=== PATIENT | female | born 1985 | race Asian ===

== ENCOUNTER → 2017-08-11 | Outpatient (CLI) | payer BC | LOC: M RAD 14:02 | DX: E28.2 Polycystic ovarian syndrome (principal) | CPT/HCPCS: 76856 ==

== ENCOUNTER → 2017-08-19 | Outpatient (CLI) | payer BC ==
[2017-08-19 18:16] LABS: PROLACTIN 13.2 NG/ML
[2017-08-19 18:16] LABS: PROGESTERONE 0.3 NG/ML
[2017-08-19 18:47] LABS: FREE T4 1.11 NG/DL (0.76-1.46)
[2017-08-24 10:10] LABS: 17 HYDROXY PROGESTERONE 72 ng/dL (.); DEHYDROEPIANDROSTERONE SULFATE 252.3 ug/dL (84.8-378.0); TESTOSTERONE FREE (DIRECT) 2.6 pg/mL (0.0-4.2)
== END ==
LOC: M SMT 15:56
DX: E28.2 Polycystic ovarian syndrome (principal)
CPT/HCPCS: 84146

== ENCOUNTER → 2017-11-09 | Outpatient (CLI) | payer BC ==
[2017-11-09 14:15] LABS: PROGESTERONE 0.4 NG/ML
== END ==
LOC: M SMT 07:58
DX: N92.6 Irregular menstruation, unspecified (principal); E28.2 Polycystic ovarian syndrome
CPT/HCPCS: 84144

== ENCOUNTER → 2017-12-16 | Outpatient (CLI) | payer BC ==
[2017-12-16 14:13] LABS: PROGESTERONE 0.5 NG/ML
== END ==
LOC: M SMT 08:04
DX: E28.2 Polycystic ovarian syndrome (principal)
CPT/HCPCS: 84144

== ENCOUNTER → 2018-01-22 | Outpatient (CLI) | payer BC ==
[2018-01-22 18:13] LABS: PROGESTERONE 12.45 NG/ML
== END ==
LOC: M SMT 12:58
DX: E28.2 Polycystic ovarian syndrome (principal)
CPT/HCPCS: 84144

== ENCOUNTER → 2018-02-03 | Outpatient (CLI) | payer BC ==
--- NOTE | 2018-02-03 12:20 | REP ---
Clinical: pelvic and perineal pain. Technique: Transabdominal pelvic ultrasound followed by transvaginal examination for better evaluation of the endometrium and adnexa with color Doppler evaluation of the ovaries. Findings: Bladder is unremarkable and measures 6.3 x 5.6 x 3.6 cm . Normal retroverted uterus measures 7.4 x 4.2 x 5.7 cm. The endometrial complex measures 5 mm thickness. No discrete significant uterine or endometrial abnormalities are appreciated. Few small benign appearing endometrial cysts measure up to 3 mm. Bilateral ovaries are normal in appearance and vascularity without evidence for torsion. Right ovary measures 3.5 x 1.8 x 1.8 cm ; R I = 0.67. Left ovary measures 2.5 x 2.7 x 1.5 cm ; R I = 0.60 . No pelvic fluid or adnexal mass lesion . Impression: 1. essentially normal pelvic ultrasound Electronically Signed by Remington Foster MD 02/03/2018 12:11 P
== END ==
LOC: M RAD 10:41
PROVIDERS: ATTEND Obstetrics & Gynecology
DX: N85.8 Other specified noninflammatory disorders of uterus (principal); R10.2 Pelvic and perineal pain

== ENCOUNTER → 2018-02-24 | Outpatient (CLI) | payer BC | LOC: M SMT 08:10 | PROVIDERS: ATTEND Obstetrics & Gynecology | DX: E28.2 Polycystic ovarian syndrome (principal) ==

== ENCOUNTER → 2018-04-19 | Outpatient (CLI) | payer BC | LOC: M SMT 08:07 | PROVIDERS: ATTEND Obstetrics & Gynecology | DX: E28.2 Polycystic ovarian syndrome (principal) ==

== ENCOUNTER → 2018-05-26 | Outpatient (REF) | payer BC ==
[2018-05-26 11:22] LABS: LUTEINIZING HORMONE 7.2 mIU/mL; PROLACTIN 17.4 NG/ML
== END ==
LOC: M LABSMT 10:19
PROVIDERS: ATTEND Obstetrics & Gynecology
DX: N92.6 Irregular menstruation, unspecified (principal)

== ENCOUNTER → 2018-06-14 | Outpatient (CLI) | payer BC | LOC: M SMT 08:03 | PROVIDERS: ATTEND Obstetrics & Gynecology | DX: N92.6 Irregular menstruation, unspecified (principal) ==

== ENCOUNTER 2018-07-14 07:50 | Emergency (ER) | payer BC ==
[~2018-07-14] VITALS: Ht 162.6 cm; Wt 60.7 kg
[2018-07-14] MEDS ORDERED: LETR2.5T2 PO (08:12)
[2018-07-14] MEDS ORDERED: MEDR10TA PO (08:12)
--- NOTE | 2018-07-14 09:13 | REP ---
CT Head without contrast HISTORY: Diplopia COMPARISON: None There is no intraparenchymal hemorrhage, acute infarct, mass or midline shift. The ventricular system is normal in appearance. There is no extra cerebral collection. There is no fracture. The visualized sinuses are clear. IMPRESSION: There is no intracranial lesion. Electronically Signed by Elvin Duong MD 07/14/2018 09:05 A
[2018-07-14] MEDS ORDERED: MECLIZINE 25 MG TABLET PO ONE (10:45)
[2018-07-14 11:40] LABS: BASO % 0.6 % (0.0-1.0); EOS # 0.1 10^3/uL (0.0-0.50); EOS % 1.7 % (0.0-3.0); HEMATOCRIT 35.8 % (36.0-47.0); LYMPH % 56.5 % (24.0-44.0); MEAN CORPUSCULAR HEMOGLOBIN 31.1 pg (27.0-33.0); MEAN CORPUSCULAR HGB CONC 33.5 g/dl (32.0-36.5); MEAN CORPUSCULAR VOLUME 92.7 fl (80.0-96.0); MONO # 0.4 10^3/uL (0.0-0.8); MONO % 10.7 % (0.0-5.0); NEUTROPHILS # 1.1 10^3/uL (1.8-7.7); NEUTROPHILS % 30.5 % (36.0-66.0); PLATELET COUNT, AUTOMATED 265 10^3/uL (150-450); RED BLOOD COUNT 3.86 10^6/uL (4.00-5.40); WHITE BLOOD COUNT 3.5 10^3/uL (4.0-10.0)
[2018-07-14 12:03] LABS: ALBUMIN 3.6 GM/DL (3.2-5.2); ALT/SGPT 23 U/L (12-78); BILIRUBIN,TOTAL 0.5 MG/DL (0.2-1.0); BLOOD UREA NITROGEN 11 MG/DL (7-18); CALCIUM LEVEL 8.6 MG/DL (8.5-10.1); CARBON DIOXIDE LEVEL 26 MEQ/L (21-32); CHLORIDE LEVEL 109 MEQ/L (98-107); CREATININE FOR GFR 0.73 MG/DL (0.55-1.30); GLOMERULAR FILTRATION RATE > 60.0 (>60); GLUCOSE, FASTING 112 MG/DL (70-100); POTASSIUM SERUM 4.3 MEQ/L (3.5-5.1); SODIUM LEVEL 141 MEQ/L (136-145); TOTAL PROTEIN 7.5 GM/DL (6.4-8.2)
--- NOTE | 2018-07-14 17:01 | REP ---
MR Brain without contrast HISTORY: Diplopia COMPARISON : CT 07/14/2018 A single punctate focus of increased signal intensity on T2-weighted images is present in the subcortical white matter of the left frontal lobe. There is no intraparenchymal hemorrhage, infarct, mass or midline shift. The ventricular system is normal in appearance. There is no extra cerebral collection. The sinuses are clear. IMPRESSION: There is a single punctate focus of increased signal intensity in the subcortical white matter of the left frontal lobe. This is a nonspecific finding. Electronically Signed by Elvin Duong MD 07/14/2018 11:08 A
--- NOTE | 2018-07-14 17:02 | REP ---
MRA Brain without contrast History: Diplopia 3-D [id number] MR angiography was performed at the level of the hop[place] of [place]. There is no aneurysm, arteriovenous malformation or atherosclerotic lesion. Major intracranial vessels are patent. The left vertebral artery is dominant. Impression: Normal MRA brain. Electronically Signed by Elvin Duong MD 07/14/2018 11:04 A
[2018-07-14 17:27] VITALS: BP 126/78
== END 2018-07-14 17:28 | disposition home or self-care (01) ==
LOC: M ED 07:50
DX: H53.2 Diplopia (principal)

== ENCOUNTER → 2018-08-11 | Outpatient (CLI) | payer BC ==
[~2018-08-11] MED LIST: LETR2.5T2 PO; MEDR10TA PO
[2018-08-11 10:38] LABS: THYROID STIMULATING HORMONE 3.59 uIU/ML (0.358-3.740)
[2018-08-11 11:18] LABS: PROGESTERONE 25.01 NG/ML
[2018-08-11 11:20] LABS: ESTRADIOL 33.3 PG/ML
== END ==
LOC: M SMT 07:53
PROVIDERS: ATTEND Obstetrics & Gynecology Reproductive Endocrinology
DX: E28.9 Ovarian dysfunction, unspecified (principal)

== ENCOUNTER → 2018-08-18 | Outpatient (CLI) | payer BC ==
[2018-08-18 10:12] LABS: HCG, SERUM QUANTITATIVE < 1.0 MIU/ML
[2018-08-18 10:20] LABS: PROGESTERONE 31.85 NG/ML
== END ==
LOC: M SMT 07:58
PROVIDERS: ATTEND Obstetrics & Gynecology Reproductive Endocrinology
DX: E28.9 Ovarian dysfunction, unspecified (principal)

== ENCOUNTER → 2018-09-10 | Outpatient (CLI) | payer BC ==
[2018-09-10 10:42] LABS: ESTRADIOL 108.9 PG/ML; PROGESTERONE 15.47 NG/ML; THYROID STIMULATING HORMONE 0.898 uIU/ML (0.358-3.740)
== END ==
LOC: M SMT 08:43
PROVIDERS: ATTEND Obstetrics & Gynecology Reproductive Endocrinology
DX: E28.9 Ovarian dysfunction, unspecified (principal)

== ENCOUNTER → 2018-09-17 | Outpatient (CLI) | payer BC ==
[2018-09-17 09:56] LABS: HCG, SERUM QUANTITATIVE < 1.0 MIU/ML
[2018-09-17 10:05] LABS: PROGESTERONE 15.59 NG/ML
== END ==
LOC: M SMT 08:22
PROVIDERS: ATTEND Obstetrics & Gynecology Reproductive Endocrinology
DX: E28.9 Ovarian dysfunction, unspecified (principal)

== ENCOUNTER → 2018-10-12 | Outpatient (CLI) | payer BC ==
[2018-10-12 11:13] LABS: THYROID STIMULATING HORMONE 0.631 uIU/ML (0.358-3.740)
[2018-10-12 11:15] LABS: ESTRADIOL 138.1 PG/ML; PROGESTERONE 40.52 NG/ML
== END ==
LOC: M SMT 08:29
PROVIDERS: ATTEND Obstetrics & Gynecology Reproductive Endocrinology
DX: E28.9 Ovarian dysfunction, unspecified (principal)

== ENCOUNTER → 2018-10-19 | Outpatient (CLI) | payer BC ==
[2018-10-19 11:41] LABS: PROGESTERONE 54.38 NG/ML
== END ==
LOC: M SMT 07:56
PROVIDERS: ATTEND Obstetrics & Gynecology Reproductive Endocrinology
DX: Z32.00 Encounter for pregnancy test, result unknown (principal)

== ENCOUNTER → 2018-10-21 | Outpatient (CLI) | payer BC ==
[2018-10-21 10:29] LABS: THYROID STIMULATING HORMONE 1.83 uIU/ML (0.358-3.740)
[2018-10-21 10:36] LABS: ESTRADIOL 330.7 PG/ML
[2018-10-21 11:03] LABS: PROGESTERONE 55.81 NG/ML
== END ==
LOC: M SMT 08:45
PROVIDERS: ATTEND Obstetrics & Gynecology Reproductive Endocrinology
DX: Z32.01 Encounter for pregnancy test, result positive (principal)

== ENCOUNTER → 2019-01-17 | Outpatient (CLI) | payer BC ==
[2019-01-17 18:23] LABS: BASO % 0.2 % (0.0-1.0); EOS # 0.1 10^3/uL (0.0-0.5); EOS % 0.7 % (0.0-3.0); HEMATOCRIT 29.9 % (36.0-47.0); HEMOGLOBIN 10.3 g/dl (12.0-15.5); LYMPH # 1.9 10^3/uL (1.5-5.0); LYMPH % 22.2 % (24.0-44.0); MEAN CORPUSCULAR HEMOGLOBIN 31.8 pg (27.0-33.0); MEAN CORPUSCULAR HGB CONC 34.4 g/dl (32.0-36.5); MEAN CORPUSCULAR VOLUME 92.3 fl (80.0-96.0); MONO # 0.6 10^3/uL (0.0-0.8); MONO % 6.5 % (0.0-5.0); NEUTROPHILS # 5.9 10^3/uL (1.5-8.5); NEUTROPHILS % 70.2 % (36.0-66.0); PLATELET COUNT, AUTOMATED 275 10^3/uL (150-450); RED BLOOD COUNT 3.24 10^6/uL (4.00-5.40); WHITE BLOOD COUNT 8.4 10^3/uL (4.0-10.0)
[2019-01-17 19:30] LABS: CHLAMYDIA DNA AMPLIFICATION NEGATIVE (NEGATIVE); GC DNA AMPLIFICATION NEGATIVE (NEGATIVE)
[2019-01-19 11:07] LABS: HIV 1&2 SCREEN CENTAUR NEGATIVE (NEGATIVE); RUBELLA IgG QUALITATIVE IMMUNE (IMMUNE)
[2019-01-19 13:55] LABS: HEPATITIS C VIRUS ABY INDEX 0.1 INDEX (<0.8)
== END ==
LOC: M PLALAB 12:19
PROVIDERS: ATTEND Obstetrics & Gynecology
DX: Z34.92 Encounter for supervision of normal pregnancy, unspecified, second trimester (principal); Z3A.00 Weeks of gestation of pregnancy not specified

== ENCOUNTER → 2019-01-17 | Outpatient (REF) | payer BC | LOC: M PLALAB 12:07 | PROVIDERS: ATTEND Obstetrics & Gynecology | DX: Z53.9 Procedure and treatment not carried out, unspecified reason (principal) ==

== ENCOUNTER → 2019-02-07 | Outpatient (CLI) | payer BC ==
--- NOTE | 2019-02-07 14:41 | REP ---
Clinical: Anatomical evaluation. Comparison: None . Findings: Examination demonstrates a single live intrauterine in cephalic presentation. motion is identified by technologist. Placenta is noted anterior and grade zero without evidence for placenta previa or abruption. Amniotic fluid volume is normal. Cervix measures 4.5 cm in length and appears closed. No evidence for nuchal cord. Gestational age by LMP 19 weeks 6 days with KENDRA 06/28/2019 . Gestational age by current measurements 19 weeks 6 days with KENDRA 06/28/2019 . FHR equals 136 beats per minute. BPD 4.5 cm 19 weeks 4 days HC 16.8 cm 19 weeks 3 days AC 14.1 cm 19 weeks 3 days FL 3.2 cm 20 weeks 0 days HL 3.1 cm 20 weeks 2 days HC/AC ratio 1.19 Estimated weight 306 grams ( 39th percentile). Anatomical assessment demonstrates normal structures including cranium, choroid plexus, cavum, cerebellum/posterior fossa, facial features, lungs, four-chamber heart/ventricular outflow tracts, diaphragm, stomach, cord insertion/three-vessel cord, kidneys/bladder, spine, and extremities. Incidental echogenic focus within the left cardiac ventricle likely prominent chordae tendineae. Impression: 1. Single live intrauterine in cephalic presentation demonstrating appropriate interval growth. 2. Anatomical assessment is essentially complete and normal as described above. Electronically Signed by Remington Foster MD 02/07/2019 12:49 P
== END ==
LOC: M RAD 11:52
PROVIDERS: ATTEND Obstetrics & Gynecology
DX: Z34.92 Encounter for supervision of normal pregnancy, unspecified, second trimester (principal)

== ENCOUNTER → 2019-03-31 | Outpatient (CLI) | payer BC ==
[2019-03-31 13:09] LABS: HEMATOCRIT 29.2 % (36.0-47.0); HEMOGLOBIN 9.7 g/dl (12.0-15.5); MEAN CORPUSCULAR HGB CONC 33.2 g/dl (32.0-36.5); MEAN CORPUSCULAR VOLUME 96.4 fl (80.0-96.0); PLATELET COUNT, AUTOMATED 248 10^3/uL (150-450); RED BLOOD COUNT 3.03 10^6/uL (4.00-5.40); WHITE BLOOD COUNT 7.4 10^3/uL (4.0-10.0)
[2019-03-31 13:49] LABS: FREE T4 0.91 NG/DL (0.76-1.46); THYROID STIMULATING HORMONE 0.677 uIU/ML (0.358-3.740)
== END ==
LOC: M PLALAB 09:40
PROVIDERS: ATTEND Obstetrics & Gynecology
DX: Z34.02 Encounter for supervision of normal first pregnancy, second trimester (principal); Z3A.00 Weeks of gestation of pregnancy not specified

== ENCOUNTER → 2019-04-02 | Outpatient (REF) | payer BC | LOC: M PLALAB 10:29 | PROVIDERS: ATTEND Obstetrics & Gynecology | DX: Z53.9 Procedure and treatment not carried out, unspecified reason (principal) ==

== ENCOUNTER → 2019-04-12 | Outpatient (CLI) | payer BC | LOC: M LAB 08:03 | PROVIDERS: ATTEND Obstetrics & Gynecology | DX: Z34.02 Encounter for supervision of normal first pregnancy, second trimester (principal); Z3A.00 Weeks of gestation of pregnancy not specified ==

== ENCOUNTER → 2019-05-31 | Outpatient (REF) | payer BC | LOC: M SFHCWAGY 16:48 | PROVIDERS: ATTEND Obstetrics & Gynecology | DX: Z34.93 Encounter for supervision of normal pregnancy, unspecified, third trimester (principal) ==

== ENCOUNTER → 2019-06-09 | Outpatient (CLI) | payer BC ==
--- NOTE | 2019-06-10 01:19 | REP ---
Clinical: Anatomical evaluation. Comparison: Growth 02/07/2019 . Findings: Examination demonstrates a single live intrauterine in cephalic presentation. motion is identified by technologist. Placenta is noted anterior and grade I I I without evidence for placenta previa or abruption. Amniotic fluid volume is normal. Cervix appears closed. No evidence for nuchal cord. Gestational age by LMP 37 weeks 2 days with KENDRA 06/28/2019 . Gestational age by current measurements 37 weeks 0 days with KENDRA 06/30/2019 . FHR equals 143 beats per minute. Estimated weight by current biometrical measurements 3238 grams ( 59 percentile). Amniotic fluid index: 12.8 cm Impression: Single live advanced gestation in cephalic presentation demonstrating appropriate interval growth. No gross abnormalities are identified.
== END ==
LOC: M WHC 14:31
PROVIDERS: ATTEND Advanced Practice Midwife
DX: O99.283 Endocrine, nutritional and metabolic diseases complicating pregnancy, third trimester (principal); Z3A.37 37 weeks gestation of pregnancy; E88.81 Metabolic syndrome and other insulin resistance

== ENCOUNTER 2019-06-27 23:52 | Inpatient (IN) | payer BC ==
[~2019-06-27] VITALS: Ht 167.6 cm; Wt 78.0 kg
[2019-06-28] VITALS (13 sets, daily range): BP systolic 99–133; BP diastolic 57–82
[2019-06-28] MEDS ORDERED: METF-839 PO (00:42)
[2019-06-28] MEDS ORDERED: PRENTAB9 PO (00:42)
[2019-06-28] MEDS ORDERED: LEVO50TA5 PO (00:42)
[2019-06-28] MEDS ORDERED: VITAD400CA PO (00:42)
[2019-06-28 01:01] LABS: HEMATOCRIT 31.9 % (36.0-47.0); HEMOGLOBIN 10.6 g/dl (12.0-15.5); MEAN CORPUSCULAR HEMOGLOBIN 32.2 pg (27.0-33.0); MEAN CORPUSCULAR HGB CONC 33.2 g/dl (32.0-36.5); PLATELET COUNT, AUTOMATED 199 10^3/uL (150-450); RED BLOOD COUNT 3.29 10^6/uL (4.00-5.40); WHITE BLOOD COUNT 8.2 10^3/uL (4.0-10.0)
[2019-06-28] MEDS ORDERED: LACTATED RINGER'S 1000 ML IV STA (01:22)
[2019-06-28] MEDS ORDERED: miSOPROStol 50 MCG 1/2 TAB (S0191) PO ONE (01:30)
--- NOTE | 2019-06-28 01:46 | HPEPDOC ---
Obstetrical History & Physical General Date of Admission June 27, 2019 at 23:52 Primary Care Physician: CRICKET MARQUES CNM History of Present Illness Patient is a 34-year-old female who is a at 40 weeks gestation with an KENDRA of 06/28/19 based off of her LMP and consistent with her first trimester ultras ound. She initiated care with [facility] due to ovulatory dysfunction related to PCOS and a pituitary adenoma. She was placed on Metformin 500 mg XR and is currently taking it TID. She is also taking levothyroxine 50 mcg daily. She has been followed for thyroid nodules. Her has also been complicated by anemia. She conceived with [facility] with IUI. She presents to L&D for an induction of labor for insulin resistance related to PCOS. She reports occasional contractions and good movement. She denies vaginal bleeding or leaking of fluid. 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; HSG done 07/27/18 and was normal) Past Medical History Medical History PCOS Pituitary adenoma Thyroid nodules Surgical History: Denies/None Family History Significant Family History: Other (thyroid disease) Social History Marital Status: Family situation: Spouse/partner home Psychosocial History: No pertinent psych hx * Smoker: non-smoker Alcohol: Denies Drugs: denies Abuse Violence Screening Have you been hit/kicked/slapp: No Have you been sexually assault: No Imunizations Influenza Status: current Allergies Coded Allergies: Penicillins (Verified Allergy, Unknown, HIVES, 06/28/19) cephalothin (Verified Allergy, Unknown, 06/28/19) Medications Scheduled Levothyroxine Sodium (Levothyroxine Sodium) 50 Mcg Tablet, 50 MCG PO DAILY Metformin HCl (Metformin HCl) 500 Mg Tablet, 1 TAB PO TID No.137/Iron/Folic Acd ( Vitamin Tablet) 1 Each Tablet, 1 TAB PO DAILY Vitamin D (Vitamin D3) 10 Mcg Tablet, 400 MCG PO DAILY Physical Examination Physical Examination GENERAL: Alert and oriented times three. BREAST: . ABDOMEN: Gravid and non-tender to touch. FETUS: Is vertex (VTX) by sterile vaginal examination (SVE), fetus is vertex (VTX) by Reece. HEART RATE: Regular rate and rhythm. LUNGS: Clear to auscultation (CTA). EXTREMITIES: No edema. No clonus. Deep tendon reflexes (DTRs) + 2. Vital Signs/I&O Vital Signs Date Time Temp Pulse Resp B/P (MAP) Pulse Ox O2 Delivery O2 Flow Rate FiO2 06/28/19 00:20 98.3 82 16 109/75 (86) Laboratory Data 24H LABS Laboratory Tests 2 06/28/19 00:04: Serology Scanned Report Hepatitis B Testing 06/28/19 00:40: Nucleated Red Blood Cells % (auto) 0.0 CBC/BMP Laboratory Tests 06/28/19 00:40 Pertinent Laboratoy Data Blood Type: A+ RBC Antibody Screen: Positive (Anti-I) HIV: Negative Hepatitis B: Negative Hepatitis C: Negative Rapid Plasma Reagin: Nonreactive Rubella: Immune Chlamydia/Gonorrhea: Negative Group B Streptococcus: Negative Glucose Tolerance Test: 155 Diag/Inter Therapy 3 hour: 90, 173, 157, 93 Anatomy Ultrasound Ultrasound Date: Jun 09, 2019 Normal Anatomy: Yes Placenta Previa: No Estimated Weight (grams): 3283 Vaginal Examination Dilation: 2cm Effacement: 80% Station: -2 Cervical Consistency: Soft Cervical Position: Anterior Presentation: Cephalic presentation Position: Vertex (occiput) Assessment Heart Rate (FHR): 130 Variability: Moderate Accelerations: Positive Decelerations: None Tocometer Contractions: Yes Frequency: regular Duration: greater than 60 seconds Strength: palpated as moderate Multi-drug resistant Organism: No history of MDRO Assessment/Plan Assessment IUP at 40 weeks gestation GBS negative Category I FHR tracing PCOS with glucose intolerance induction of labor Plan Admit to L&D. OOB ad nena. Diet: regular then clears when IV Pitocin is started. Group B Streptococcus (GBS) negative. Labs and intravenous (IV) per unit protocol. Counseled on Cytotec and IV Pitocin for induction of labor (IOL). Anesthesia consult per patient's request. Lactated Ringers (LR): Bolus 800 mL prior to epidural. Anticipate cervical ripening and cervical change. C-S as appropriate. CRICKET MARQUES CNM June 28, 2019 01:45
[2019-06-28] MEDS ORDERED: LEVOTHYROXINE 50MCG TABLET (0.05MG) PO SCH ×2 (06:00→21:00)
[2019-06-28] MEDS ORDERED: OXYTOCIN DRIP 30 UNITS in IV 1 EA IV SCH (07:00)
[2019-06-28] MEDS ORDERED: FENTANYL 2MCG/ML ROPIVACAINE 0.2% IN 0.9% NACL 100ML IVBAG As Ordered ONE (14:47)
[2019-06-28] MEDS ORDERED: NALOXONE INJ 0.4MG/1ML VIAL (J2310 PER 1MG) IV PRN (15:45)
[2019-06-28] MEDS ORDERED: LACTATED RINGER'S 1000 ML IV PRN (15:45)
[2019-06-28] MEDS ORDERED: EPIDURAL COMMENT XX SCH (15:45)
[2019-06-28] MEDS ORDERED: EPIDURAL/PCA KEYS XX PRN (15:45)
[2019-06-28] MEDS ORDERED: ONDANSETRON 4MG/2ML VIAL IV PRN (15:45)
[2019-06-28] MEDS ORDERED: REFRIGERATOR IV KEYS XX PRN (15:45)
[2019-06-28] MEDS ORDERED: ePHEDrine SULFATE 25 MG/5 ML(5MG/ML) SYRINGE IV PRN (15:45)
[2019-06-28] MEDS: FENTANYL/ROPIVACAINE/NACL BAG 100 ML EPIDURAL SCH ×2 (15:45→23:47)
[2019-06-28] MEDS ORDERED: diphenhydrAMINE 50MG/ML VIAL (J1200) IV PRN (15:45)
[2019-06-28] MEDS: LR 1,000 ML IV SCH ×2 (19:59→23:49)
[2019-06-29] VITALS (10 sets, daily range): BP systolic 112–138; BP diastolic 61–84
[2019-06-29] MEDS ORDERED: CLINDAMYCIN 900 MG in IV 1 EA IV ONE (00:45)
[2019-06-29] MEDS ORDERED: AZTREONAM 2 GM in D5W MINI-BAG PLUS 50 ML IV ONE (00:45)
[2019-06-29] MEDS ORDERED: BICITRA 30ML SOLN UDC PO ONE (00:45)
--- NOTE | 2019-06-29 00:55 | IPNPDOC ---
Obstetrical Progress Note Date of Service June 29, 2019 Subjective Patient currently 8 cm, completely effaced, -1 station, unchanged for the last 1.5hrs. . Persistent category 2 tracing with tachycardia and late decelerations. Pitocin off now for over an hour with persistent tracing. Patient has been counseled regards to concerns of tracing. I discuss proceeding with primary site section for arrest dilation as well as persistent category 2 tracing Objective Vital Signs Date Time Temp Pulse Resp B/P (MAP) Pulse Ox O2 Delivery O2 Flow Rate FiO2 06/28/19 23:47 99.6 06/28/19 23:27 81 20 122/68 (86) Assessment Heart Rate (FHR): 180 Accelerations: Present Heart Patterns: Tachycardia Heart Rate Tracing: Category II Tocometer Contractions: Yes Frequency: regular Sterile Vaginal Examination Dilation: 8 cm Effacement (%): 100% Station: -1, 0 Cervical Consistency: Soft Cervical Position: Anterior Assessment and Plan Age: 34 : 1 Status: Non-reassuring Anticipate: Section Additional Comments 32-year-old 1 at 40 weeks with persistent category 2 rate tracing , tachycardia, and recurrent late decelerations. Patient has been thoroughly counseled regards to these findings and I have discussed plan for primary section with the above indication. Anesthesia notified and OR team has be mobilized GABRIEL WOODWARD MD. June 29, 2019 00:55
[2019-06-29] MEDS ORDERED: LIDOCAINE 2% W/EPIN INJ 20ML **PRES FREE As Ordered ONE (01:23)
[2019-06-29] MEDS ORDERED: ONDANSETRON 4MG/2ML VIAL As Ordered ONE (01:23)
[2019-06-29] MEDS ORDERED: MORPHINE PRES-FREE INJ 10 MG/10 ML VIAL (J2274) As Ordered ONE (01:23)
[2019-06-29] MEDS ORDERED: OXYTOCIN INJ 10 UNITS/ML VIAL (J2590) As Ordered ONE ×2 (01:23→01:54)
[2019-06-29] MEDS ORDERED: diphenhydrAMINE 50MG/ML VIAL (J1200) IV PRN (01:38)
[2019-06-29] MEDS ORDERED: ONDANSETRON 4MG/2ML VIAL IV PRN ×3 (01:38→02:45)
[2019-06-29] MEDS ORDERED: METOCLOPRAMIDE INJ 10MG/2ML VIAL (J2765 PER 1) IV PRN ×2 (01:38→02:45)
[2019-06-29] MEDS ORDERED: NALOXONE INJ 0.4MG/1ML VIAL (J2310 PER 1MG) IV PRN ×2 (01:38)
[2019-06-29] MEDS ORDERED: NALBUPHINE HCL 10 MG/ML AMP (J2300) IV PRN (01:38)
[2019-06-29] MEDS ORDERED: ACETAMINOPHEN 1000MG 100ML IV BTL (OFIRMEV) (J0131 PER 10MG) As Ordered ONE (01:42)
[2019-06-29 01:47] LABS: CORD GAS ABE A -7.5; CORD GAS ABE V -9.3; CORD GAS HCO3 A 23.9 MEQ/L; CORD GAS HCO3 V 20.9 MEQ/L; CORD GAS O2 SAT A 22.7 %; CORD GAS O2 SAT V 37.8 %; CORD GAS PCO2 A 75.6 mmHg; CORD GAS PCO2 V 63.4 mmHg; CORD GAS PH A 7.118 UNITS; CORD GAS PH V 7.136 UNITS; CORD GAS PO2 A 16.5 mmHg; CORD GAS PO2 V 21.6 mmHg; CORD GAS SBC A 16.8 MEQ/L; CORD GAS SBC V 15.9 MEQ/L; CORD GAS TCO2 A 26.2 MEQ/L; CORD GAS TCO2 V 22.9 MEQ/L
[2019-06-29] MEDS ORDERED: MOM 30ML SUSPENSION UDC PO PRN (02:15)
[2019-06-29] MEDS ORDERED: RHOGAM 300 MCG (1500 IU) INJ (J2790) IM SCH (02:15)
[2019-06-29] MEDS ORDERED: OXYTOCIN DRIP 30 UNITS in IV 1 EA IV SCH (02:15)
[2019-06-29] MEDS ORDERED: MEASLES,MUMPS,RUBELLA VACCINE INJ (MMR-II) (90707) SC SCH (02:15)
[2019-06-29] MEDS: LR 1,000 ML IV SCH ×3 (02:15→18:15)
--- NOTE | 2019-06-29 02:26 | ROOPDOC ---
[facility] Report Of Operation Report of Operation DATE OF PROCEDURE: 06/29/19 SURGEON: Radha Gotti M.D. MANAGER COMMUNITY: Dr. Cherise Galindo ANESTHESIA:, Epidural PREOPERATIVE DIAGNOSIS:. Nonreassuring heart tracing POSTOPERATIVE DIAGNOSIS: Nonreassuring tracing ESTIMATED BLOOD LOSS: 500 mL URINE OUTPUT: 150 mL INTRAVENOUS FLUIDS: 900 mL lactated Ringer's solution PREOPERATIVE ANTIBIOTICS:. 2 g of Azactam 900 mg of clindamycin OPERATIVE FINDINGS: Liveborn male , Apgars 6 and 8. Weight was 9 lbs. 1 oz. or 4120 g SPECIMENS:. Cord gases INDICATIONS FOR PROCEDURE: This patient is a 32-year-old 1 that presented for induction labor, 40 weeks. She progressed to 7 cm dilation at which time she started to have tachycardia and repetitive late decelerations. Pitocin was discontinued and she was reassessed making minimal change and decision was made to proceed with section secondary to nonreassuring heart tracing with persistent category 2 tracing with tachycardia and wrapped repetitive late decelerations DESCRIPTION OF PROCEDURE: After informed consent was obtained and written consent was reviewed. The patient was brought to the operating room where spinal anesthesia was placed. She was then placed in the supine position with a left lateral tilt. Gordon catheter was placed and to gravity. Patient was then prepped and draped in the normal sterile fashion. A timeout operating room was performed identifying the patient, procedure be performed as well as drug allergies. Anesthesia was tested and deemed to be adequate. Pfannenstiel skin incision was made and this was carried down to the underlying rectus fascia. The fascia was then scored and this incision was extended bilaterally. The fascia was then dissected off the underlying rectus muscle superiorly and inferiorly. The rectus muscles were then in the midline. The peritoneum is then entered. Vesicouterine peritoneum was then tented and excised and a bladder flap was created. Mobius retractor was then placed. Next, a curvilinear incision was then made in the lower uterine segment. Amniotomy was performed, productive, clear fluid. The head was brought to the level of the incision atraumatically and delivered along the shoulders and corpus. The cord was clamped and cut. The was brought over to the warmer with a good cry. Placenta was drained and delivered grossly intact. The uterus was cleared of all clots and debris and the uterine incision was then closed in 2 layers using 0 Vicryl, first in a running locking fashion followed by second layer for imbrication. The abdomen suctioned. Surgical sites reinspected and noted be hemostatic. The retractor was then removed. The anterior peritoneum was then reapproximated with 3-0 Vicryl. The rectus muscles were reapproximated 3-0 Vicryl. The fascia was then closed using 0 Vicryl in a running nonlocking fashion. The subcutaneous tissues was then irrigated and suctioned. Subcutaneous tissue was reapproximated using 3-0 Vicryl. Several subdermal stitch is placed using 3-0 Vicryl and the skin was closed with 4-0 Monocryl and subcuticular fashion. This incision was then cleaned and dried and was dressed. The patient was then taken to recovery in stable condition. All counts were correct. The couple has decided to name the Brody My surgical brace maker. Dr. Lou played in an essential role during the operation. They assisted with tissue identification retraction, delivery of the , as well as wound closure. RADHA GOTTI MD. June 29, 2019 02:26
[2019-06-29] MEDS ORDERED: LR 1,000 ML IV SCH (02:45)
[2019-06-29] MEDS ORDERED: oxyCODONE 5MG TAB PO PRN (02:45)
[2019-06-29] MEDS ORDERED: fentaNYL 100 MCG/2 ML INJECTION (J3010) IV PRN (02:45)
[2019-06-29] MEDS ORDERED: OXYTOCIN 30 UNITS IN 0.9% NaCl 500ML IV BAG (J2590) As Ordered ONE (02:59)
[2019-06-29] MEDS ORDERED: KETOROLAC 30 MG/ML 1ML VIAL As Ordered ONE (02:59)
[2019-06-29] MEDS: KETOROLAC 30 MG/ML 1ML VIAL IV SCH ×3 (03:03→15:43)
[2019-06-29] MEDS: DOCUSATE SODIUM 100 MG CAP PO SCH ×2 (09:18→21:41)
[2019-06-29] MEDS: PRENATAL VITAMINS CHEWABLE TABLET PO SCH (09:19)
[2019-06-29] MEDS ORDERED: BOOSTRIX/ADACEL VACCINE (DIPHTH/PERTUSS/ACELL/TETANUS) 0.5ML SYR IM ONE (10:30)
[2019-06-29] MEDS ORDERED: IBUP80TA PO (14:27)
[2019-06-29] MEDS ORDERED: PERCOCET PO (14:27)
[2019-06-29] MEDS: IBUPROFEN 800 MG TAB PO SCH (22:18)
[2019-06-29] MEDS: PERCOCET 5MG/325MG TAB PO PRN (22:19)
[2019-06-30 02:00] VITALS: BP 124/60
[2019-06-30 05:42] VITALS: BP 102/58
[2019-06-30] MEDS: IBUPROFEN 800 MG TAB PO SCH ×3 (06:06→23:03)
[2019-06-30 07:15] LABS: HEMATOCRIT 25.5 % (36.0-47.0); HEMOGLOBIN 8.6 g/dl (12.0-15.5); MEAN CORPUSCULAR HEMOGLOBIN 33.2 pg (27.0-33.0); MEAN CORPUSCULAR HGB CONC 33.7 g/dl (32.0-36.5); MEAN CORPUSCULAR VOLUME 98.5 fl (80.0-96.0); PLATELET COUNT, AUTOMATED 121 10^3/uL (150-450); RED BLOOD COUNT 2.59 10^6/uL (4.00-5.40); WHITE BLOOD COUNT 11.2 10^3/uL (4.0-10.0)
[2019-06-30] MEDS: DOCUSATE SODIUM 100 MG CAP PO SCH ×2 (07:56→21:09)
[2019-06-30] MEDS: PRENATAL VITAMINS CHEWABLE TABLET PO SCH (07:56)
[2019-06-30 09:56] VITALS: BP 125/77
[2019-06-30 14:00] VITALS: BP 124/80
[2019-06-30] MEDS: PERCOCET 5MG/325MG TAB PO PRN (15:29)
[2019-06-30 18:19] VITALS: BP 129/66
[2019-06-30 22:08] VITALS: BP 117/58
[2019-07-01 02:00] VITALS: BP 125/67
[2019-07-01] MEDS: PERCOCET 5MG/325MG TAB PO PRN ×2 (04:27→15:35)
[2019-07-01 06:00] VITALS: BP 128/80
[2019-07-01] MEDS: IBUPROFEN 800 MG TAB PO SCH ×2 (06:25→14:18)
[2019-07-01] MEDS: DOCUSATE SODIUM 100 MG CAP PO SCH (08:48)
[2019-07-01] MEDS: PRENATAL VITAMINS CHEWABLE TABLET PO SCH (08:48)
== END 2019-07-01 18:20 | disposition home or self-care (01) | DRG 540 ==
LOC: M LDI 23:52 → M OBS 06-29 03:50
PROVIDERS: ADMIT Advanced Practice Midwife; ATTEND Advanced Practice Midwife
PROC: 10D00Z1 Extraction of Products of Conception, Low, Open Approach (ICD-10-PCS; principal; 2019-06-29 01:05)
DX: O99.284 Endocrine, nutritional and metabolic diseases complicating childbirth (principal); Z37.0 Single live birth; Z3A.40 40 weeks gestation of pregnancy; E28.2 Polycystic ovarian syndrome; O48.0 Post-term pregnancy; E04.1 Nontoxic single thyroid nodule; O76 Abnormality in fetal heart rate and rhythm complicating labor and delivery

== ENCOUNTER → 2019-12-02 | Outpatient (REF) | payer BC ==
[~2019-12-02] MED LIST changes: +IBUP80TA PO; +LEVO50TA5 PO; +METF-839 PO; +PERCOCET PO; +PRENTAB9 PO; +VITAD400CA PO
== END ==
LOC: M PLALAB 14:41
PROVIDERS: ATTEND Obstetrics & Gynecology
DX: Z12.4 Encounter for screening for malignant neoplasm of cervix (principal); Z01.419 Encounter for gynecological examination (general) (routine) without abnormal findings

== ENCOUNTER → 2019-12-05 | Outpatient (REF) | payer BC | LOC: M SFHCWAGY 17:07 | PROVIDERS: ATTEND Obstetrics & Gynecology | DX: Z12.4 Encounter for screening for malignant neoplasm of cervix (principal) ==

== ENCOUNTER → 2019-12-12 | Outpatient (CLI) | payer BC ==
--- NOTE | 2019-12-12 13:32 | REP ---
INDICATION: N63.20 LEFT BREAST LUMP. Breast-feeding. COMPARISON: None TECHNIQUE: Real-time sonographic evaluation of left breast performed. FINDINGS: At the site of the palpable lump in the left breast between 1 and 2 o'clock, approximately 8 cm from the nipple, is a slightly hypoechoic heterogeneous oval nodule. With Doppler evaluation this is not hyperemic. It measures 2.7 x 2.0 x 1.1 cm. IMPRESSION: BIRADS/ACR category 3 probably benign. At the site of the palpable lump 2 o'clock left breast an oval solid appearing nodule is present measuring 2.7 x 2.0 x 1.1 cm. In a patient this age who is breast feeding this most likely represents a benign nodule such as fibroadenoma, lactating adenoma, or benign proliferative change. RECOMMENDATION: Recommend follow-up ultrasound in 6 months. <Electronically signed by Ruslan Gallo > 12/12/19 [id number]
== END ==
LOC: M WHC 12:44
PROVIDERS: ATTEND Obstetrics & Gynecology
DX: N63.20 Unspecified lump in the left breast, unspecified quadrant (principal)

== ENCOUNTER → 2019-12-12 | Outpatient (REF) | payer BC ==
[2019-12-12 18:22] LABS: FREE T4 1.14 NG/DL (0.76-1.46); THYROID STIMULATING HORMONE 1.98 uIU/ML (0.358-3.740)
== END ==
LOC: M PLALAB 12:40
PROVIDERS: ATTEND Obstetrics & Gynecology
DX: Z01.419 Encounter for gynecological examination (general) (routine) without abnormal findings (principal)

== ENCOUNTER → 2020-01-27 | Outpatient (CLI) | payer BC ==
--- NOTE | 2020-01-27 16:19 | REP ---
INDICATION: N63.10 RT BREAST MASS 12:00 3 CFN IN LACTATING MOTHER. COMPARISON: None. TECHNIQUE: Targeted right breast sonography in the area the palpable lump at approximately 12 o'clock. FINDINGS: Targeted right breast sonography in the area the palpable abnormality shows heterogeneous fibroglandular background echotexture. No cyst or mass is seen. No acoustic shadowing or architectural distortion is noted. IMPRESSION: BI-RADS category 1-findings. Clinical follow-up is advised. <Electronically signed by Andrea Myers > 01/27/20 [id number]
--- NOTE | 2020-01-27 16:25 | REP ---
INDICATION: R59.[address] COMPARISON: None. TECHNIQUE: Targeted left axillary sonography. FINDINGS: Sonography of the left axilla demonstrates several lymph nodes. The largest of these measure as follows: 1.4 x 1.3 x 0.5, 1.8 x 1.9 x 0.7, and 1.1 x 1.1 x 0.6 cm. The 1.1 by 1.1 x 0.6 cm lymph node has a very thin cortical margin in and echogenic hilar architecture. The 1.8 x 1.9 cm lymph node has a thin stripe of hilar fatty tissue and a 3 mm cortical thickness surrounding this. The 1.4 cm node displace hypo echoic cortex up to 3 mm. These 2 larger nodes may be slightly hypertrophied. This is of doubtful significance given that this patient is lactating. IMPRESSION: BI-RADS category 3 probably benign axillary lymph nodes. Two nodes show mild cortical hypertrophy. Question reactive lymph nodes. Six-month follow-up axillary sonography could be considered. <Electronically signed by Andrea Myers > 01/27/20 [id number]
== END ==
LOC: M WHC 14:00
PROVIDERS: ATTEND Surgery
DX: N63.10 Unspecified lump in the right breast, unspecified quadrant (principal); R59.9 Enlarged lymph nodes, unspecified

== ENCOUNTER → 2020-06-07 | Outpatient (REF) | payer BC | LOC: M LAB REF 16:56 | PROVIDERS: ATTEND Physician Assistant | DX: D22.62 Melanocytic nevi of left upper limb, including shoulder (principal) ==

== ENCOUNTER → 2020-07-06 | Outpatient (CLI) | payer BC ==
--- NOTE | 2020-07-06 14:49 | REP ---
INDICATION: 6 MO F/U LT AXILLARY PALPABLE LYMPH NODE COMPARISON: 01/27/2020 TECHNIQUE: Realtime grayscale ultrasound examination using linear high-frequency transducer. FINDINGS: Re-evaluation of the lymph nodes in the left axillary compartment again demonstrate normal appearing lymph nodes measuring 18 x 7 x 17 mm, 21 x 6 x 14 mm, and 14 x 7 x 10 mm. IMPRESSION: Relatively normal appearing lymph nodes without significant change from prior examination. <Electronically signed by Remington Foster > 07/06/20 [id number]
--- NOTE | 2020-07-06 15:04 | REP ---
INDICATION: 6 MO F/U LT BREAST LESION. History BI-RADS category 3 lesion left breast 1 o'clock, 8 cm from the nipple with palpable lymph node in the left axilla. Six-month follow-up. COMPARISON: Comparison sonography 12 December 2019.. TECHNIQUE: Targeted left breast sonography 1 to 2 o'clock position. FINDINGS: Heterogeneous fibroglandular background echotexture is seen. The previously noted isoechoic to slightly hypoechoic nodular area is not seen today. Normal stromal elements are observed sonographically. No cyst or mass is seen. No acoustic shadowing is seen. IMPRESSION: BI-RADS category 1 findings. Negative targeted left breast sonography. <Electronically signed by Andrea Myers > 07/06/20 1500
== END ==
LOC: M WHC 13:53
PROVIDERS: ATTEND Surgery
DX: N63.20 Unspecified lump in the left breast, unspecified quadrant (principal); R59.0 Localized enlarged lymph nodes

== ENCOUNTER → 2020-08-24 | Outpatient (CLI) | payer BC ==
--- NOTE | 2020-08-24 10:30 | REP ---
INDICATION: Patient states she no longer has a palpable mass. Patient states she has been breast feeding for 14 months. COMPARISON: None TECHNIQUE: Focused left breast ultrasonography at the 11 o'clock position FINDINGS: There are no cystic or solid masses. IMPRESSION: ACR category 2 benign focused left breast ultrasound. If this negative examination does not explain the patient's clinical presentation then a focused left mammogram with DBT imaging over the clinical region of interest can be performed. In addition, gadolinium enhanced breast MRI can also be performed if focused mammography does not explain the patient's clinical findings. <Electronically signed by Landry Mejia > 08/24/20 1020
== END ==
LOC: M WHC 07:54
PROVIDERS: ATTEND Surgery
DX: N63.20 Unspecified lump in the left breast, unspecified quadrant (principal)

== ENCOUNTER → 2020-09-03 | Outpatient (CLI) | payer BC ==
--- NOTE | 2020-09-03 13:48 | REP ---
INDICATION: PATIENT DOES NOT COMPLAIN OF A PALPABLE MASS OR OTHER SIGNIFICANT BREAST COMPLAINTS. PATIENT STATES 2 MONTHS AGO SHE FELT SOMETHING IN HER LEFT BREAST BUT IT HAS BEEN GONE FOR "SOMETIME" COMPARISON: NONE TECHNIQUE: Digital mammography of the left breast was carried out in the CC and MLO projections using both 2D and 3D modalities. Since the patient has no complaint of a focal breast abnormality no focused spot compression views or focused left breast ultrasound could be obtained.. FINDINGS: Dense heterogenous somewhat nodular fibroglandular elements are seen throughout the left breast to such a degree that the sensitivity of the mammogram a detecting cancers decreased. There are no masses. There is no internal architectural distortion. There are no suspicious calcifications. There is no skin thickening or nipple retraction. The Volpara volumetric breast density pattern is C. IMPRESSION: BIRADS/ACR category 2 benign findings. There is no evidence of malignant alteration of the left breast.. Negative mammogram should never curtail biopsy of a clinically palpable mass or clinically suspicious area the breast. This patient's Tyrer-Cuzick lifetime breast cancer risk assessment score is 14.7%. This mammogram was interpreted with the aid of an FDA-approved computer-aided detection system. The patient states she had a clinical breast exam in August 2020. The patient letter being requested is M2. RECOMMENDATION: Repeat screening mammography recommended 1 year (for women over 40). <Electronically signed by Landry Mejia > 09/03/20 [id number]
== END ==
LOC: M WHC 12:01
PROVIDERS: ATTEND Surgery
DX: N63.20 Unspecified lump in the left breast, unspecified quadrant (principal)
CPT/HCPCS: 77065; G0279

== ENCOUNTER → 2021-01-21 | Outpatient (CLI) | payer BC ==
[2021-01-21 11:29] LABS: ESTRADIOL 154.4 PG/ML; PROGESTERONE 26.89 NG/ML
== END ==
LOC: M PLALAB 07:57
PROVIDERS: ATTEND Obstetrics & Gynecology Reproductive Endocrinology
DX: Z31.49 Encounter for other procreative investigation and testing (principal)

== ENCOUNTER → 2021-01-28 | Outpatient (CLI) | payer BC ==
[2021-01-28 09:25] LABS: HCG, SERUM QUANTITATIVE < 1.0 MIU/ML
[2021-01-28 10:02] LABS: PROGESTERONE 8.56 NG/ML
== END ==
LOC: M PLALAB 07:47
PROVIDERS: ATTEND Obstetrics & Gynecology Reproductive Endocrinology
DX: Z32.00 Encounter for pregnancy test, result unknown (principal)

== ENCOUNTER → 2021-09-30 | Outpatient (CLI) | payer BC ==
[2021-09-30 11:15] LABS: ESTRADIOL 93.4 PG/ML; PROGESTERONE 38.33 NG/ML
== END ==
LOC: M PLALAB 08:09
PROVIDERS: ATTEND Obstetrics & Gynecology Reproductive Endocrinology
DX: Z31.49 Encounter for other procreative investigation and testing (principal)

== ENCOUNTER → 2021-10-10 | Outpatient (CLI) | payer BC ==
[2021-10-10 11:24] LABS: HCG, SERUM QUANTITATIVE < 1.0 MIU/ML
[2021-10-10 11:50] LABS: PROGESTERONE 12.69 NG/ML
== END ==
LOC: M PLALAB 08:21
PROVIDERS: ATTEND Obstetrics & Gynecology Reproductive Endocrinology
DX: Z32.00 Encounter for pregnancy test, result unknown (principal)

== ENCOUNTER → 2021-11-06 | Outpatient (CLI) | payer BC ==
[2021-11-06 10:52] LABS: ESTRADIOL 109.1 PG/ML; PROGESTERONE 32.09 NG/ML
== END ==
LOC: M PLALAB 07:31
PROVIDERS: ATTEND Obstetrics & Gynecology Reproductive Endocrinology
DX: Z31.49 Encounter for other procreative investigation and testing (principal)

== ENCOUNTER → 2021-11-13 | Outpatient (CLI) | payer BC ==
[2021-11-14 17:51] LABS: PROGESTERONE 39.59 NG/ML
== END ==
LOC: M PLALAB 07:25
PROVIDERS: ATTEND Obstetrics & Gynecology Reproductive Endocrinology
DX: Z32.00 Encounter for pregnancy test, result unknown (principal)

== ENCOUNTER → 2021-11-15 | Outpatient (CLI) | payer BC ==
[2021-11-15 10:55] LABS: THYROID STIMULATING HORMONE 3.33 uIU/ML (0.358-3.740)
[2021-11-15 13:09] LABS: PROGESTERONE 40.68 NG/ML
== END ==
LOC: M PLALAB 07:04
PROVIDERS: ATTEND Obstetrics & Gynecology Reproductive Endocrinology
DX: Z32.01 Encounter for pregnancy test, result positive (principal); Z3A.00 Weeks of gestation of pregnancy not specified

== ENCOUNTER → 2022-02-26 | Outpatient (CLI) | payer BC ==
[~2022-02-26] MED LIST changes: -MEDR10TA PO; +MEDR10TA9 PO
[2022-02-26 10:51] LABS: HEMATOCRIT 30.2 % (36.0-47.0); HEMOGLOBIN 10.4 g/dl (12.0-15.5); MEAN CORPUSCULAR HEMOGLOBIN 32.1 pg (27.0-33.0); MEAN CORPUSCULAR HGB CONC 34.4 g/dl (32.0-36.5); MEAN CORPUSCULAR VOLUME 93.2 fl (80.0-96.0); PLATELET COUNT, AUTOMATED 256 10^3/uL (150-450); RED BLOOD COUNT 3.24 10^6/uL (4.00-5.40)
[2022-02-26 11:52] LABS: HIV 1&2 SCREEN CENTAUR NEGATIVE (NEGATIVE)
[2022-02-26 12:08] LABS: GC DNA AMPLIFICATION NEGATIVE (NEGATIVE)
== END ==
LOC: M PLALAB 08:35
PROVIDERS: ATTEND Advanced Practice Midwife
DX: Z36.9 Encounter for antenatal screening, unspecified (principal)

== ENCOUNTER → 2022-03-12 | Outpatient (CLI) | payer BC | LOC: M WHC 13:38 | PROVIDERS: ATTEND Advanced Practice Midwife | DX: Z34.82 Encounter for supervision of other normal pregnancy, second trimester (principal) ==

== ENCOUNTER → 2022-04-18 | Outpatient (CLI) | payer BC ==
[2022-04-18 17:14] LABS: HEMATOCRIT 32.5 % (36.0-47.0); HEMOGLOBIN 10.9 g/dl (12.0-15.5); MEAN CORPUSCULAR HGB CONC 33.5 g/dl (32.0-36.5); MEAN CORPUSCULAR VOLUME 95.3 fl (80.0-96.0); PLATELET COUNT, AUTOMATED 251 10^3/uL (150-450); RED BLOOD COUNT 3.41 10^6/uL (4.00-5.40); WHITE BLOOD COUNT 8.3 10^3/uL (4.0-10.0)
[2022-04-18 17:42] LABS: FREE T4 0.94 NG/DL (0.89-1.76); THYROID STIMULATING HORMONE 0.616 uIU/ML (0.55-4.78)
[2022-04-18 19:02] LABS: GC DNA AMPLIFICATION NEGATIVE (NEGATIVE)
== END ==
LOC: M PLALAB 13:54
PROVIDERS: ATTEND Obstetrics & Gynecology
DX: Z36.9 Encounter for antenatal screening, unspecified (principal)

== ENCOUNTER → 2022-04-29 | Outpatient (CLI) | payer BC | LOC: M LAB 07:29 | PROVIDERS: ATTEND Obstetrics & Gynecology | DX: R73.09 Other abnormal glucose (principal) ==

== ENCOUNTER → 2022-06-23 | Outpatient (REF) | payer BC | LOC: M PLALAB 15:36 | PROVIDERS: ATTEND Obstetrics & Gynecology | DX: Z36.85 Encounter for antenatal screening for Streptococcus B (principal) ==

== ENCOUNTER 2022-07-21 05:20 | Inpatient (IN) | payer BC ==
[~2022-07-21] VITALS: Ht 162.6 cm; Wt 77.4 kg
[2022-07-21] VITALS (9 sets, daily range): BP systolic 114–127; BP diastolic 65–79; TEMP 97; O2SAT 95–100
[2022-07-21] MEDS ORDERED: LACTATED RINGER'S 1000 ML IV STA (05:27)
[2022-07-21] MEDS ORDERED: LR 1,000 ML IV SCH (05:30)
[2022-07-21] MEDS ORDERED: BICITRA 30ML SOLN UDC PO ONE (05:30)
[2022-07-21] MEDS ORDERED: CLINDAMYCIN 900 MG in IV 1 EA IV ONE (05:30)
[2022-07-21] MEDS ORDERED: IRON325T2 PO (05:45)
[2022-07-21] MEDS ORDERED: HOME MED LIST COMPLETE! XX SCH (05:50)
[2022-07-21 06:19] LABS: HEMATOCRIT 33.9 % (36.0-47.0); HEMOGLOBIN 11.5 g/dl (12.0-15.5); MEAN CORPUSCULAR HGB CONC 33.9 g/dl (32.0-36.5); MEAN CORPUSCULAR VOLUME 94.4 fl (80.0-96.0); PLATELET COUNT, AUTOMATED 223 10^3/uL (150-450); RED BLOOD COUNT 3.59 10^6/uL (4.00-5.40); WHITE BLOOD COUNT 8.8 10^3/uL (4.0-10.0)
[2022-07-21] MEDS ORDERED: ONDANSETRON 4MG 2ML VIAL IV PRN ×2 (08:00→09:00)
[2022-07-21] MEDS ORDERED: SIMETHICONE 80MG CHEW TAB PO PRN (08:00)
[2022-07-21] MEDS ORDERED: MOM 30ML SUSPENSION UDC PO PRN (08:00)
[2022-07-21] MEDS ORDERED: RHOGAM 300MCG (1500IU) INJ IM SCH (08:00)
[2022-07-21] MEDS ORDERED: PERCOCET 5MG/325MG TAB PO PRN (08:00)
[2022-07-21] MEDS ORDERED: OXYTOCIN DRIP 30 UNITS in IV 1 EA IV SCH (08:00)
[2022-07-21] MEDS ORDERED: PHENYLephrine 500MCG 5ML (100MCG/ML) SYRINGE As Ordered ONE (08:21)
[2022-07-21] MEDS ORDERED: ACETAMINOPHEN 1000MG 100ML IV BAG As Ordered ONE (08:21)
[2022-07-21] MEDS ORDERED: KETOROLAC 60MG 2ML VIAL As Ordered ONE (08:21)
[2022-07-21] MEDS ORDERED: METOCLOPRAMIDE INJ 10MG/2ML VIAL As Ordered ONE (08:21)
[2022-07-21] MEDS ORDERED: OXYTOCIN 30UNITS IN 0.9% NaCl 500ML IV BAG As Ordered ONE ×2 (08:21→08:52)
[2022-07-21] MEDS ORDERED: ePHEDrine SULFATE 25 MG/5 ML(5MG/ML) SYRINGE As Ordered ONE (08:21)
[2022-07-21] MEDS ORDERED: ONDANSETRON 4MG 2ML VIAL As Ordered ONE (08:21)
[2022-07-21] MEDS ORDERED: MORPHINE PRES-FREE INJ 10 MG/10 ML VIAL As Ordered ONE (08:21)
[2022-07-21] MEDS ORDERED: NALOXONE INJ 0.4MG/1ML VIAL IV PRN ×2 (09:00)
[2022-07-21] MEDS ORDERED: **NOTE PATIENT COMMENT** MISC XX SCH (09:00)
[2022-07-21] MEDS ORDERED: METOCLOPRAMIDE INJ 10MG/2ML VIAL IV PRN (09:00)
[2022-07-21] MEDS ORDERED: diphenhydrAMINE 50MG/ML VIAL IV PRN (09:00)
[2022-07-21] MEDS: PRENATAL VITAMINS CHEWABLE TABLET PO SCH (09:00)
[2022-07-21] MEDS: SLF 3 ML SYR IV SCH ×2 (09:00→17:00)
[2022-07-21] MEDS: LR 1,000 ML IV SCH ×2 (12:39→18:15)
[2022-07-21] MEDS: PERCOCET 5MG/325MG TAB PO PRN (12:39)
[2022-07-21] MEDS: KETOROLAC 30 MG/ML 1ML VIAL IV SCH ×2 (15:00→20:49)
[2022-07-21] MEDS: DOCUSATE SODIUM 100MG CAPSULE PO SCH (20:49)
[2022-07-22] MEDS: LR 1,000 ML IV SCH
[2022-07-22] MEDS: SLF 3 ML SYR IV SCH (00:40)
[2022-07-22 02:00] VITALS: BP 112/55; O2SAT 96
[2022-07-22] MEDS: KETOROLAC 30 MG/ML 1ML VIAL IV SCH (03:00)
[2022-07-22 06:00] VITALS: BP 113/61; O2SAT 97
[2022-07-22 07:01] LABS: HEMATOCRIT 27.4 % (36.0-47.0); HEMOGLOBIN 9.5 g/dl (12.0-15.5); MEAN CORPUSCULAR HEMOGLOBIN 32.9 pg (27.0-33.0); MEAN CORPUSCULAR HGB CONC 34.7 g/dl (32.0-36.5); MEAN CORPUSCULAR VOLUME 94.8 fl (80.0-96.0); PLATELET COUNT, AUTOMATED 185 10^3/uL (150-450); RED BLOOD COUNT 2.89 10^6/uL (4.00-5.40); WHITE BLOOD COUNT 10.4 10^3/uL (4.0-10.0)
[2022-07-22] MEDS: DOCUSATE SODIUM 100MG CAPSULE PO SCH ×2 (09:48→19:41)
[2022-07-22] MEDS: PRENATAL VITAMINS CHEWABLE TABLET PO SCH (09:48)
[2022-07-22 10:00] VITALS: BP 134/84; O2SAT 96
[2022-07-22] MEDS: IBUPROFEN 800 MG TAB PO SCH ×2 (11:03→18:19)
[2022-07-22 14:00] VITALS: BP 107/55; O2SAT 95
[2022-07-22] MEDS: PERCOCET 5MG/325MG TAB PO PRN ×2 (15:31→21:41)
[2022-07-22 18:00] VITALS: BP 136/81; O2SAT 96
[2022-07-22 22:00] VITALS: BP 114/66; O2SAT 97
[2022-07-23] MEDS: IBUPROFEN 800 MG TAB PO SCH ×2 (01:54→09:59)
[2022-07-23 01:58] VITALS: BP 106/61; O2SAT 98
[2022-07-23] MEDS: PERCOCET 5MG/325MG TAB PO PRN ×2 (05:05→11:07)
[2022-07-23 05:54] VITALS: BP 133/81; O2SAT 97
[2022-07-23] MEDS ORDERED: IBUP80TA PO (08:09)
[2022-07-23] MEDS ORDERED: PERCOCET PO (08:09)
[2022-07-23] MEDS ORDERED: COLA100C5 PO (08:09)
[2022-07-23] MEDS ORDERED: MEASLES,MUMPS,RUBELLA VACCINE INJ (MMR-II) SC.IMMUN ONE (09:00)
[2022-07-23] MEDS: PRENATAL VITAMINS CHEWABLE TABLET PO SCH (09:58)
[2022-07-23] MEDS: DOCUSATE SODIUM 100MG CAPSULE PO SCH (09:59)
== END 2022-07-23 13:40 | disposition home or self-care (01) | DRG 540 ==
LOC: M LDI 05:20 → M OBS 10:38
PROVIDERS: ADMIT Obstetrics & Gynecology; ATTEND Obstetrics & Gynecology
PROC: 10D00Z1 Extraction of Products of Conception, Low, Open Approach (ICD-10-PCS; principal; 2022-07-21 07:30)
DX: O34.211 Maternal care for low transverse scar from previous cesarean delivery (principal); O09.523 Supervision of elderly multigravida, third trimester; Z37.0 Single live birth; Z3A.39 39 weeks gestation of pregnancy

== ENCOUNTER → 2023-01-28 | Outpatient (CLI) | payer BC ==
[~2023-01-28] MED LIST changes: +COLA100C5 PO; +IRON325T2 PO
[2023-01-28 12:42] LABS: FREE T4 1.15 NG/DL (0.89-1.76); THYROID STIMULATING HORMONE 3.346 uIU/ML (0.55-4.78)
== END ==
LOC: M PLALAB 07:11
PROVIDERS: ATTEND Obstetrics & Gynecology
DX: E03.9 Hypothyroidism, unspecified (principal)

== ENCOUNTER → 2023-11-24 | Outpatient (REF) | payer BC | LOC: M LAB REF 17:12 | PROVIDERS: ATTEND Family Medicine | DX: J02.9 Acute pharyngitis, unspecified (principal) ==

== ENCOUNTER → 2024-11-29 | Outpatient (REF) | payer BC ==
[2024-12-01 14:37] LABS: HPV APTIMA Not Detected (Not Detected)
== END ==
LOC: M SFHCWAGY 13:06
PROVIDERS: ATTEND Obstetrics & Gynecology
DX: Z12.4 Encounter for screening for malignant neoplasm of cervix (principal)
CPT/HCPCS: 87624; G0123